=== PATIENT | male | born 1965 | race Caucasian/White ===

== ENCOUNTER → 2017-01-05 | Outpatient (CLI) | payer MEDICARE ==
[2017-01-05 11:45] LABS: Anion Gap 10 mmol/L; Blood Urea Nitrogen 20 mg/dL (9-20); Calcium 8.9 mg/dL (8.4-10.2); Carbon Dioxide 23 mmol/L (22-30); Chloride 105 mmol/L (98-107); Glucose 172 mg/dL (74-99); Non-African American GFR(MDRD) >60 (>60 ml/min/1.73 sqM); Potassium 4.6 mmol/L (3.5-5.1); Sodium 138 mmol/L (137-145)
[2017-01-05 12:13] LABS: Prostate Specific Antigen 1.23 ng/mL (0.00-4.00)
== END | disposition home or self-care (01) ==
LOC: LABWHC1 07:06
PROVIDERS: ATTEND Internal Medicine
DX: N40.0 Benign prostatic hyperplasia without lower urinary tract symptoms (principal); J44.9 Chronic obstructive pulmonary disease, unspecified; E87.8 Other disorders of electrolyte and fluid balance, not elsewhere classified; E87.5 Hyperkalemia; I10 Essential (primary) hypertension; E55.9 Vitamin D deficiency, unspecified; E10.9 Type 1 diabetes mellitus without complications
CPT/HCPCS: 36415; 80048; 83036; 84153

== ENCOUNTER → 2017-08-22 | Outpatient (CLI) | payer MEDICARE ==
[2017-08-22 07:47] LABS: Basophils # (A) 0.1 k/uL (0-0.2); Basophils % (A) 1 %; Eosinophils # (A) 0.6 k/uL (0-0.7); Eosinophils % (A) 6 %; HCT 51.3 % (39.0-53.0); HGB 15.9 gm/dL (13.0-17.5); Lymphocytes % (A) 19 %; MCH 30.6 pg (25.0-35.0); MCV 98.8 fL (80.0-100.0); Mean Platelet Volume 7.6; Monocytes # (A) 0.7 k/uL (0-1.0); Monocytes % (A) 7 %; Neutrophils # (A) 6.8 k/uL (1.3-7.7); Neutrophils % (A) 65 %; Platelet Count 343 k/uL (150-450); RBC 5.19 m/uL (4.30-5.90); RDW 13.9 % (11.5-15.5); WBC 10.5 k/uL (3.8-10.6)
[2017-08-22 10:14] LABS: Albumin 4.4 g/dL (3.5-5.0); Anion Gap 10 mmol/L; C Reactive Protein 12.2 mg/L (<10.0); Calcium 9.8 mg/dL (8.4-10.2); Carbon Dioxide 29 mmol/L (22-30); Chloride 100 mmol/L (98-107); Cholesterol 190 mg/dL (<200); Creatine Kinase 303 U/L (55-170); Creatinine,Urine Random 53.7 mg/dL; Glucose 221 mg/dL (74-99); HDL Cholesterol 62 mg/dL (40-60); LDL Cholesterol,Calculated 115 mg/dL (0-99); Sodium 139 mmol/L (137-145); Total Bilirubin 0.6 mg/dL (0.2-1.3); Total Protein 7.8 g/dL (6.3-8.2); Triglycerides 64 mg/dL (<150); Uric Acid 4.2 mg/dL (3.5-8.5)
[2017-08-22 10:27] LABS: T4, Free (Free Thyroxine) 1.35 ng/dL (0.78-2.19)
[2017-08-22 10:41] LABS: Prostate Specific Antigen 1.25 ng/mL (0.00-4.00)
[2017-08-22 10:43] LABS: ALT 39 U/L (21-72); AST 25 U/L (17-59); Alkaline Phosphatase 63 U/L (38-126); Blood Urea Nitrogen 20 mg/dL (9-20); Potassium 5.4 mmol/L (3.5-5.1)
[2017-08-22 11:15] LABS: Erythrocyte Sedimentation Rate 9 mm/hr (0-15)
[2017-08-22 15:58] LABS: Hemoglobin A1C 8.3 % (4.0-6.0)
== END | disposition home or self-care (01) ==
LOC: LABWHC1 07:20
PROVIDERS: ATTEND Internal Medicine
DX: N40.0 Benign prostatic hyperplasia without lower urinary tract symptoms (principal); E10.9 Type 1 diabetes mellitus without complications; E78.5 Hyperlipidemia, unspecified; I10 Essential (primary) hypertension; R80.9 Proteinuria, unspecified; E55.9 Vitamin D deficiency, unspecified
CPT/HCPCS: 36415; 80053; 80061; 82306; 82550; 82570; 83036; 84153; 84156; 84439; 84443; 84550; 85025; 85652; 86140

== ENCOUNTER → 2017-12-05 | Outpatient (CLI) | payer MEDICARE ==
[2017-12-05 10:06] LABS: ALT 23 U/L (21-72); AST 28 U/L (17-59); Anion Gap 12 mmol/L; Blood Urea Nitrogen 22 mg/dL (9-20); C Reactive Protein 8.9 mg/L (<10.0); Calcium 9.5 mg/dL (8.4-10.2); Carbon Dioxide 28 mmol/L (22-30); Chloride 103 mmol/L (98-107); Cholesterol 175 mg/dL (<200); Creatine Kinase 433 U/L (55-170); Glucose 87 mg/dL (74-99); HDL Cholesterol 65 mg/dL (40-60); LDL Cholesterol,Calculated 101 mg/dL (0-99); Magnesium 2.2 mg/dL (1.6-2.3); Phosphorus 3.5 mg/dL (2.5-4.5); Potassium 4.9 mmol/L (3.5-5.1); Sodium 143 mmol/L (137-145); Triglycerides 47 mg/dL (<150)
[2017-12-05 10:17] LABS: T4, Free (Free Thyroxine) 1.12 ng/dL (0.78-2.19)
[2017-12-05 16:57] LABS: Hemoglobin A1C 8.1 % (4.0-6.0)
== END ==
LOC: LABWHC1 06:55
PROVIDERS: ATTEND Internal Medicine
DX: E03.9 Hypothyroidism, unspecified (principal); E55.9 Vitamin D deficiency, unspecified; E11.9 Type 2 diabetes mellitus without complications; E87.5 Hyperkalemia
CPT/HCPCS: 36415; 80048; 80061; 82306; 82550; 83036; 83735; 84100; 84439; 84443; 84450; 84460; 85652; 86140

== ENCOUNTER → 2018-06-05 | Outpatient (CLI) | payer MEDICARE ==
[2018-06-05 11:33] LABS: Hemoglobin A1C 6.8 % (4.0-6.0)
== END | disposition home or self-care (01) ==
LOC: LABWHC1 07:03
PROVIDERS: ATTEND Internal Medicine
DX: E10.8 Type 1 diabetes mellitus with unspecified complications (principal)
CPT/HCPCS: 36415; 82947; 83036; 84681

== ENCOUNTER → 2018-08-26 | Outpatient (CLI) | payer MEDICARE ==
[2018-08-26 07:51] LABS: Appearance,Urine Clear (Clear); Bilirubin,Urine Negative (Negative); Blood,Urine Negative (Negative); Color,Urine Yellow; Glucose,Urine (UA) 3+ (Negative); Ketones,Urine Negative (Negative); Leukocyte Esterase,Urine Negative (Negative); Nitrite,Urine Negative (Negative); PH, Urine 5.5 (5.0-8.0); Protein,Urine Negative (Negative); Specific Gravity,Urine 1.018 (1.001-1.035); Urobilinogen,Urine <2.0 mg/dL (<2.0)
[2018-08-26 07:58] LABS: Basophils # (A) 0.1 k/uL (0-0.2); Basophils % (A) 1 %; Eosinophils # (A) 0.6 k/uL (0-0.7); Eosinophils % (A) 7 %; HCT 47.3 % (39.0-53.0); HGB 15.9 gm/dL (13.0-17.5); Lymphocytes # (A) 2.7 k/uL (1.0-4.8); Lymphocytes % (A) 32 %; MCH 31.8 pg (25.0-35.0); MCHC 33.5 g/dL (31.0-37.0); MCV 94.9 fL (80.0-100.0); Mean Platelet Volume 7.2; Monocytes # (A) 0.6 k/uL (0-1.0); Monocytes % (A) 7 %; Neutrophils # (A) 4.2 k/uL (1.3-7.7); Neutrophils % (A) 51 %; Platelet Count 322 k/uL (150-450); RBC 4.99 m/uL (4.30-5.90); RDW 12.3 % (11.5-15.5); WBC 8.4 k/uL (3.8-10.6)
[2018-08-26 11:48] LABS: T4, Free (Free Thyroxine) 1.4 ng/dL (0.80-1.80)
[2018-08-26 12:02] LABS: Erythrocyte Sedimentation Rate 11 mm/hr (0-15)
[2018-08-26 12:24] LABS: Albumin 4.5 g/dL (3.80-4.90); Albumin/Globulin Ratio 2.05 (1.20-2.10); Anion Gap 8.7 mmol/L (4.00-12.00); C Reactive Protein 0.9 mg/dL (0.0-0.8); Calcium 9.2 mg/dL (8.7-10.3); Carbon Dioxide 25.3 mmol/L (21.6-31.8); Globulin 2.2 g/dL (1.6-3.3); LDL Cholesterol,Calculated 111.2 mg/dL (0.0-131.0); Magnesium 1.7 mg/dL (1.5-2.4); Phosphorus 4.6 mg/dL (2.4-5.1); Potassium 4.2 mmol/L (3.5-5.5); Total Bilirubin 0.5 mg/dL (0.3-1.2); Total Protein 6.7 g/dL (6.2-8.2); VLDL Calculation 17.8 mg/dL (5.00-40.00)
[2018-08-26 14:56] LABS: Hemoglobin A1C 8.3 % (4.0-6.0)
== END | disposition home or self-care (01) ==
LOC: LABWHC1 07:25
PROVIDERS: ATTEND Internal Medicine
DX: E10.40 Type 1 diabetes mellitus with diabetic neuropathy, unspecified (principal); N40.0 Benign prostatic hyperplasia without lower urinary tract symptoms; J44.9 Chronic obstructive pulmonary disease, unspecified; E78.5 Hyperlipidemia, unspecified; E03.9 Hypothyroidism, unspecified
CPT/HCPCS: 36415; 80053; 80061; 81003; 82043; 82550; 82570; 83036; 83735; 84100; 84153; 84439; 84443; 85025; 85652; 86140

== ENCOUNTER → 2018-11-26 | Outpatient (CLI) | payer MEDICARE ==
[2018-11-26 20:09] LABS: T4, Free (Free Thyroxine) 1.6 ng/dL (0.80-1.80)
[2018-11-26 20:13] LABS: LDL Cholesterol,Calculated 91.2 mg/dL (0.0-131.0); VLDL Calculation 12.8 mg/dL (5.00-40.00)
== END ==
LOC: LABWHC1 07:13
PROVIDERS: ATTEND Internal Medicine
DX: E78.5 Hyperlipidemia, unspecified (principal); E03.9 Hypothyroidism, unspecified; E55.9 Vitamin D deficiency, unspecified; E10.9 Type 1 diabetes mellitus without complications
CPT/HCPCS: 36415; 80061; 82306; 82550; 84439; 84443; 84450; 84460

== ENCOUNTER → 2019-03-03 | Outpatient (CLI) | payer MEDICARE ==
[2019-03-03 12:55] LABS: Creatine Kinase 390 U/L (35-257); Glucose 123 mg/dL (70-110)
[2019-03-03 14:34] LABS: Hemoglobin A1C 7.8 % (4.0-6.0)
== END | disposition home or self-care (01) ==
LOC: LABWHC1 06:50
PROVIDERS: ATTEND Internal Medicine
DX: E10.8 Type 1 diabetes mellitus with unspecified complications (principal)
CPT/HCPCS: 36415; 82550; 82947; 83036

== ENCOUNTER → 2019-06-11 | Outpatient (CLI) | payer MEDICARE, OTHER ==
[2019-06-11 11:22] LABS: African American GFR (CKD) 65.5 (60.0-200.0); Anion Gap 10.1 mmol/L (4.00-12.00); BUN/Creat Ratio 22.14 Ratio (12.00-20.00); Calcium 9.1 mg/dL (8.7-10.3); Carbon Dioxide 27.9 mmol/L (21.6-31.8); Non-African American GFR(CKD) 56.6 (60.0-200.0); Potassium 4.9 mmol/L (3.5-5.5)
[2019-06-11 11:29] LABS: T4, Free (Free Thyroxine) 1.4 ng/dL (0.80-1.80)
[2019-06-11 16:29] LABS: Hemoglobin A1C 8.5 % (4.0-6.0)
== END | disposition home or self-care (01) ==
LOC: LABWHC1 06:57
PROVIDERS: ATTEND Internal Medicine
DX: E10.9 Type 1 diabetes mellitus without complications (principal); E55.9 Vitamin D deficiency, unspecified
CPT/HCPCS: 36415; 80048; 82306; 83036; 84439; 84443

== ENCOUNTER → 2020-06-16 | Outpatient (CLI) | payer MEDICARE, OTHER ==
[2020-06-16 15:18] LABS: T4, Free (Free Thyroxine) 1.3 ng/dL (0.80-1.80)
[2020-06-16 17:36] LABS: Hemoglobin A1C 8.8 % (4.0-6.0)
[2020-06-16 18:02] LABS: Potassium 5.1 mmol/L (3.5-5.5)
[2020-06-16 18:03] LABS: African American GFR (CKD) 87.1 (60.0-200.0); Anion Gap 10.5 mmol/L (4.00-12.00); BUN/Creat Ratio 13.64 Ratio (12.00-20.00); Calcium 9.4 mg/dL (8.7-10.3); Carbon Dioxide 25.5 mmol/L (21.6-31.8); Non-African American GFR(CKD) 75.2 (60.0-200.0)
== END | disposition home or self-care (01) ==
LOC: LABWHC1 07:23
PROVIDERS: ATTEND Internal Medicine
DX: E10.8 Type 1 diabetes mellitus with unspecified complications (principal)
CPT/HCPCS: 36415; 80048; 83036; 84439; 84443; 85652

== ENCOUNTER → 2021-05-22 | Outpatient (CLI) | payer MEDICARE, OTHER ==
[2021-05-22 14:23] LABS: African American GFR (CKD) 102.6 (60.0-200.0); Anion Gap 14.4 mmol/L (4.00-12.00); BUN/Creat Ratio 20.73 Ratio (12.00-20.00); Blood Urea Nitrogen 19.8 mg/dL (9.0-27.0); Calcium 9.4 mg/dL (8.7-10.3); Carbon Dioxide 23.8 mmol/L (21.6-31.8); Non-African American GFR(CKD) 88.6 (60.0-200.0); Potassium 4.9 mmol/L (3.5-5.5)
== END | disposition home or self-care (01) ==
LOC: LABWHC1 07:05
PROVIDERS: ATTEND Internal Medicine
DX: E10.8 Type 1 diabetes mellitus with unspecified complications (principal)
CPT/HCPCS: 36415; 80048; 83036; 84450; 84460

== ENCOUNTER → 2021-05-25 | Outpatient (CLI) | payer MEDICARE, OTHER ==
--- NOTE | 2021-05-25 16:56 | US ---
EXAMINATION TYPE: US venous doppler duplex LE LT DATE OF EXAM: 05/25/2021 1:47 PM COMPARISON: NONE CLINICAL HISTORY: 55-year-old male R60.9 Swelling/edema E10.8 diabetes. Left leg swelling SIDE PERFORMED: Left TECHNIQUE: The lower extremity deep venous system is examined utilizing real time linear array sonog fredrick with graded compression, doppler sonography and color-flow sonography. FINDINGS: VESSELS IMAGED: Common Femoral Vein Deep Femoral Vein Greater Saphenous Vein * Femoral Vein Popliteal Vein Small Saphenous Vein * Proximal Calf Veins (* superficial vessels) Left Leg: Appears negative for DVT IMPRESSION: No evidence for DVT within the left lower extremity imaged from the groin to the upper calf.
== END | disposition home or self-care (01) ==
LOC: RADUSWWP 13:15
PROVIDERS: ATTEND Internal Medicine
DX: E11.65 Type 2 diabetes mellitus with hyperglycemia (principal); R60.9 Edema, unspecified; R22.42 Localized swelling, mass and lump, left lower limb

== ENCOUNTER → 2022-01-29 | Outpatient (CLI) | payer MEDICARE, OTHER ==
[2022-01-29 10:42] LABS: Basophils # (A) 0.07 X 10*3/uL (0.00-0.10); Basophils % (A) 0.8 %; Eosinophils # (A) 0.55 X 10*3/uL (0.04-0.35); Eosinophils % (A) 6.5 %; HCT 44.8 % (39.6-50.0); HGB 14.8 g/dL (13.0-17.0); Immature Grans, Automated 0.5 %; Lymphocytes # (A) 1.69 X 10*3/uL (0.90-5.00); Lymphocytes % (A) 19.9 %; MCH 30.5 pg (27.0-32.0); MCV 92.2 fL (80.0-97.0); Mean Platelet Volume 9.5 fL (9.5-12.2); Monocytes # (A) 0.99 X 10*3/uL (0.20-1.00); Monocytes % (A) 11.6 %; NRBC Per 100 WBC 0 /100 WBCS (0.0-0.0); Neutrophils # (A) 5.17 X 10*3/uL (1.80-7.70); Neutrophils % (A) 60.7 %; Platelet Count 341 X 10*3/uL (140-440); RBC 4.86 X 10*6/uL (4.40-5.60); WBC 8.51 X 10*3/uL (4.50-10.00)
[2022-01-29 11:24] LABS: ALT 17 U/L (10-49); AST 17 U/L (14-35); African American GFR (CKD) 86.9 (60.0-200.0); Albumin 4.4 g/dL (3.8-4.9); Albumin/Globulin Ratio 1.56 (1.60-3.17); Alkaline Phosphatase 67 U/L (41-126); Blood Urea Nitrogen 20.6 mg/dL (9.0-27.0); Calcium 9.5 mg/dL (8.7-10.3); Carbon Dioxide 27.9 mmol/L (20.0-27.5); Chloride 98 mmol/L (96-109); Chol/HDL Ratio 2.47 Ratio; Globulin 2.8 g/dL (1.6-3.3); Glucose 165 mg/dL (70-110); LDL Cholesterol,Calculated 87.2 mg/dL (0.0-131.0); Potassium 5.2 mmol/L (3.5-5.5); Sodium 134 mmol/L (135-145); Total Protein 7.2 g/dL (6.2-8.2); VLDL Calculation 10.38 mg/dL (5.00-40.00)
== END | disposition home or self-care (01) ==
LOC: LABWHC1 07:00
PROVIDERS: ATTEND Internal Medicine
DX: I10 Essential (primary) hypertension (principal); E87.8 Other disorders of electrolyte and fluid balance, not elsewhere classified; E10.8 Type 1 diabetes mellitus with unspecified complications; E78.5 Hyperlipidemia, unspecified; E03.9 Hypothyroidism, unspecified
CPT/HCPCS: 36415; 80053; 80061; 82306; 83036; 84439; 84443; 85025

== ENCOUNTER → 2022-06-04 | Outpatient (CLI) | payer MEDICARE, OTHER | END | disposition home or self-care (01) | LOC: LABWHC1 07:02 | PROVIDERS: ATTEND Internal Medicine | DX: E10.649 Type 1 diabetes mellitus with hypoglycemia without coma (principal) | CPT/HCPCS: 36415; 82947; 83036 ==

== ENCOUNTER → 2022-09-20 | Outpatient (CLI) | payer MEDICARE, OTHER ==
[2022-09-20 18:27] LABS: Basophils # (A) 0.07 X 10*3/uL (0.00-0.10); Basophils % (A) 0.8 %; Eosinophils # (A) 0.47 X 10*3/uL (0.04-0.35); Eosinophils % (A) 5.1 %; HCT 46.6 % (39.6-50.0); HGB 15.3 g/dL (13.0-17.0); Immature Grans, Automated 0.3 %; Lymphocytes # (A) 1.93 X 10*3/uL (0.90-5.00); Lymphocytes % (A) 20.9 %; MCHC 32.8 g/dL (32.0-37.0); MCV 94.5 fL (80.0-97.0); Mean Platelet Volume 9.7 fL (9.5-12.2); Monocytes # (A) 0.77 X 10*3/uL (0.20-1.00); Monocytes % (A) 8.4 %; NRBC Per 100 WBC 0 /100 WBCS (0.0-0.0); Neutrophils # (A) 5.95 X 10*3/uL (1.80-7.70); Neutrophils % (A) 64.5 %; Platelet Count 355 X 10*3/uL (140-440); RBC 4.93 X 10*6/uL (4.40-5.60); RDW 13.2 % (11.5-14.5); WBC 9.22 X 10*3/uL (4.50-10.00)
[2022-09-20 18:50] LABS: Prostate Specific Antigen 1.5 ng/mL (0.00-3.50); T4, Free (Free Thyroxine) 1.39 ng/dL (0.800-1.800)
[2022-09-20 18:53] LABS: African American GFR (CKD) 85.9 (60.0-200.0); Albumin 4.4 g/dL (3.8-4.9); Albumin/Globulin Ratio 1.29 (1.60-3.17); Anion Gap 12.8 mmol/L (10.00-18.00); BUN/Creat Ratio 22.45 Ratio (12.00-20.00); Blood Urea Nitrogen 24.7 mg/dL (9.0-27.0); C Reactive Protein 0.8 mg/dL (0.00-0.80); Calcium 9.8 mg/dL (8.7-10.3); Carbon Dioxide 27.2 mmol/L (20.0-27.5); Globulin 3.4 g/dL (1.6-3.3); Non-African American GFR(CKD) 74.1 (60.0-200.0); Phosphorus 3.8 mg/dL (2.4-5.1); Potassium 5.2 mmol/L (3.5-5.5); Total Bilirubin 0.3 mg/dL (0.30-1.20); Total Protein 7.8 g/dL (6.2-8.2)
[2022-09-20 19:01] LABS: Erythrocyte Sedimentation Rate 28 mm/Hr (0-20)
== END | disposition home or self-care (01) ==
LOC: LABWHC1 12:40
PROVIDERS: ATTEND Internal Medicine
DX: Z00.00 Encounter for general adult medical examination without abnormal findings (principal); E10.9 Type 1 diabetes mellitus without complications; N40.0 Benign prostatic hyperplasia without lower urinary tract symptoms; E78.5 Hyperlipidemia, unspecified; R06.02 Shortness of breath
CPT/HCPCS: 36415; 80053; 82043; 82306; 82550; 82570; 83036; 83735; 84100; 84153; 84439; 84443; 85025; 85652; 86140

== ENCOUNTER → 2022-12-14 | Outpatient (CLI) | payer MEDICARE, OTHER ==
[2022-12-14 12:07] LABS: African American GFR (CKD) 85.3 (60.0-200.0); Anion Gap 7.6 mmol/L (10.00-18.00); BUN/Creat Ratio 24.55 Ratio (12.00-20.00); Calcium 9.7 mg/dL (8.7-10.3); Carbon Dioxide 29.4 mmol/L (20.0-27.5); Non-African American GFR(CKD) 73.6 (60.0-200.0); Potassium 5.3 mmol/L (3.5-5.5)
== END | disposition home or self-care (01) ==
LOC: LABWHC1 07:24
PROVIDERS: ATTEND Internal Medicine
DX: I10 Essential (primary) hypertension (principal); E11.65 Type 2 diabetes mellitus with hyperglycemia; E87.8 Other disorders of electrolyte and fluid balance, not elsewhere classified; R06.02 Shortness of breath
CPT/HCPCS: 36415; 80048; 83036

== ENCOUNTER → 2023-03-23 | Outpatient (CLI) | payer MEDICARE, OTHER ==
[2023-03-23 13:26] LABS: ALT 17 U/L (10-49); AST 17 U/L (14-35); Chol/HDL Ratio 3.25 Ratio; Glucose 94 mg/dL (70-110); LDL Cholesterol,Calculated 112.1 mg/dL (0.0-131.0); VLDL Calculation 11.92 mg/dL (5.00-40.00)
== END | disposition home or self-care (01) ==
LOC: LABWHC1 08:25
PROVIDERS: ATTEND Internal Medicine
DX: E10.9 Type 1 diabetes mellitus without complications (principal); E78.5 Hyperlipidemia, unspecified
CPT/HCPCS: 36415; 80061; 82947; 83036; 84450; 84460

== ENCOUNTER → 2023-07-08 | Outpatient (CLI) | payer MEDICARE, OTHER ==
[2023-07-08 15:58] LABS: Glucose 83 mg/dL (70-110)
[2023-07-08 18:32] LABS: C-Peptide <0.02 ng/mL (0.81-3.85)
== END | disposition home or self-care (01) ==
LOC: LABWHC1 08:37
PROVIDERS: ATTEND Internal Medicine Endocrinology, Diabetes & Metabolism
DX: E10.65 Type 1 diabetes mellitus with hyperglycemia (principal)
CPT/HCPCS: 36415; 82947; 83519; 84681

== ENCOUNTER → 2023-11-12 | Outpatient (CLI) | payer MEDICARE, OTHER ==
--- NOTE | 2023-11-19 11:09 | CT ---
EXAMINATION TYPE: CT chest wo con CT DLP: 517.6 mGycm, Automated exposure control for dose reduction was used. DATE OF EXAM: 11/12/2023 7:23 AM COMPARISON: None. . CLINICAL INDICATION:Male, 57 years old with history of F17.200 NICOTINE DEPENDENCE, UNSPECIFIED, UNCO MPLI; PHH, history of smoker TECHNIQUE: Multiple axial images were obtained through the chest. Sagittal and coronal reformats were created for review. Contrast used: mL of (None if empty) Oral contrast used: (None if empty) FINDINGS: LUNGS/ PLEURA: No significant emphysematous changes. No acute infiltrate, pleural effusion, or pneumothorax. Minimal linear scarring or atelectasis in the lingula. Nodules: No clinically significant nodules identified. Very small somewhat nodular thickening along t he inferior end of the left oblique fissure around image 53, likely fissural lymph node or fissural t hickening. Similarly, likely fissural lymph node farther cranially on image 38. AIRWAY: Central airways appear patent. There seems to be mild narrowing of the mid trachea in the tra nsverse dimension. LOWER NECK: No significant findings. MEDIASTINUM: No evidence of enlarged mediastinal nodes.. HEART: Normal heart size. Moderate to severe coronary artery calcification and/or stents. Trace peric ardial effusion. VASCULATURE: Mild atherosclerotic calcifications of the aorta and branches. The aortic root is 3.5 c m, ascending 3.1 cm, mid arch 2.5 cm, descending 2.2 cm. Pulmonary trunk measures 2.5 CM. Pulmonary t runk is normal in size. Vessels otherwise not further assessed without contrast. SOFT TISSUES/LYMPH NODES: Mild bilateral gynecomastia like changes, otherwise unremarkable soft tissu es of the chest. No enlarged axillary nodes. UPPER ABDOMEN: No significant findings. Small sliding hiatal hernia. Question mild wall thickening co uld be from reflux. MUSCULOSKELETAL: No acute osseous abnormalities. Mild disc degeneration changes are present throughou t the thoracolumbar spine. IMPRESSION: 1. No concerning pulmonary nodules. If continued lung cancer screening is desired, recommend annual low-dose CT chest. 2. Moderate to heavy coronary arterial calcifications.
== END | disposition home or self-care (01) ==
LOC: RADCTMAIN 07:03
PROVIDERS: ATTEND Internal Medicine
DX: I25.10 Atherosclerotic heart disease of native coronary artery without angina pectoris (principal); F17.200 Nicotine dependence, unspecified, uncomplicated
CPT/HCPCS: 71250

== ENCOUNTER → 2024-04-03 | Outpatient (CLI) | payer MEDICARE | END | disposition home or self-care (01) | LOC: LABWHC1 11:33 | PROVIDERS: ATTEND Internal Medicine | DX: Z00.00 Encounter for general adult medical examination without abnormal findings (principal); I12.9 Hypertensive chronic kidney disease with stage 1 through stage 4 chronic kidney disease, or unspecified chronic kidney disease; N18.30 Chronic kidney disease, stage 3 unspecified; D63.1 Anemia in chronic kidney disease; J44.9 Chronic obstructive pulmonary disease, unspecified; E55.9 Vitamin D deficiency, unspecified; E87.8 Other disorders of electrolyte and fluid balance, not elsewhere classified; E78.5 Hyperlipidemia, unspecified; E11.65 Type 2 diabetes mellitus with hyperglycemia; M10.9 Gout, unspecified; M81.0 Age-related osteoporosis without current pathological fracture | CPT/HCPCS: 36415; 80053; 80061; 82043; 82306; 82550; 82570; 82728; 83036; 83540; 83550; 83735; 84100; 84153; 84443; 84550; 85025; 85652; 86140 ==

== ENCOUNTER → 2024-08-28 | Outpatient (CLI) | payer MEDICARE ==
[2024-08-28 15:06] LABS: Basophils % (A) 1.1 %; Eosinophils % (A) 6.7 %; HCT 48.7 % (39.6-50.0); HGB 15.4 g/dL (13.0-17.0); Lymphocytes # (A) 2.39 X 10*3/uL (0.90-5.00); Lymphocytes % (A) 26.9 %; MCH 30.5 pg (27.0-32.0); MCHC 31.6 g/dL (32.0-37.0); MCV 96.4 FL (80.0-97.0); Monocytes # (A) 0.87 X 10*3/uL (0.20-1.00); Monocytes % (A) 9.8 %; NRBC Per 100 WBC 0 X 10*3/uL (0.00-0.01); Neutrophils # (A) 4.91 X 10*3/uL (1.80-7.70); Neutrophils % (A) 55.3 %; Platelet Count 361 X 10*3/uL (140-440); RBC 5.05 X 10*6/uL (4.40-5.60); RDW 12.9 % (11.5-14.5); WBC 8.89 X 10*3/uL (4.50-10.00)
[2024-08-28 15:41] LABS: Chol/HDL Ratio 3.24 Ratio; Creatine Kinase 271 U/L (35-257); VLDL Calculation 16.04 mg/dL (5.00-40.00)
[2024-08-28 15:42] LABS: % Iron Saturation 24.92 (15.00-50.00); ALT 15 U/L (10-49); AST 18 U/L (14-35); Albumin 4.3 g/dL (3.8-4.9); Albumin/Globulin Ratio 1.39 Ratio (1.60-3.17); Alkaline Phosphatase 76 U/L (41-126); BUN/Creat Ratio 22.64 Ratio (12.00-20.00); Blood Urea Nitrogen 24.9 mg/dL (9.0-27.0); Calcium 9.7 mg/dL (8.7-10.3); Carbon Dioxide 27.9 mmol/L (21.6-31.8); Chloride 100 mmol/L (96-109); Globulin 3.1 g/dL (1.6-3.3); Glucose 153 mg/dL (70-110); Iron 82 UG/DL (65-175); LDL Cholesterol,Calculated 124.3 mg/dL (0.0-131.0); Magnesium 2.4 mg/dL (1.5-2.4); Phosphorus 3.3 mg/dL (2.4-5.1); Potassium 5.3 mmol/L (3.5-5.5); Prostate Specific Antigen 1.86 ng/mL (0.000-3.500); Sodium 141 mmol/L (135-145); Total Bilirubin 0.4 mg/dL (0.3-1.2); Total Iron Binding Capacity 329 UG/DL (228-460); Total Protein 7.4 g/dL (6.2-8.2); Uric Acid 4.5 mg/dL (3.7-8.7)
== END | disposition home or self-care (01) ==
LOC: LABWHC1 07:16
PROVIDERS: ATTEND Internal Medicine Endocrinology, Diabetes & Metabolism
DX: Z00.00 Encounter for general adult medical examination without abnormal findings (principal); I12.9 Hypertensive chronic kidney disease with stage 1 through stage 4 chronic kidney disease, or unspecified chronic kidney disease; E11.22 Type 2 diabetes mellitus with diabetic chronic kidney disease; N18.30 Chronic kidney disease, stage 3 unspecified; D63.1 Anemia in chronic kidney disease; N40.0 Benign prostatic hyperplasia without lower urinary tract symptoms; J44.9 Chronic obstructive pulmonary disease, unspecified; E87.8 Other disorders of electrolyte and fluid balance, not elsewhere classified; M10.00 Idiopathic gout, unspecified site; E78.5 Hyperlipidemia, unspecified; E11.65 Type 2 diabetes mellitus with hyperglycemia; E66.9 Obesity, unspecified; M10.9 Gout, unspecified; E55.9 Vitamin D deficiency, unspecified; R80.9 Proteinuria, unspecified
CPT/HCPCS: 36415; 80053; 80061; 82306; 82550; 82728; 83036; 83540; 83550; 83735; 83970; 84100; 84153; 84439; 84443; 84550; 85025; 86140

== ENCOUNTER → 2025-01-23 | Outpatient (CLI) | payer MEDICARE ==
[2025-01-23 09:03] LABS: Creatinine,Urine Random 51.4 mg/dL; Protein/Creatinine Ratio,Urine 0.272
[2025-01-23 12:53] LABS: Microalbumin Creatinine Ratio <24 mg/g Cr (0-30)
[2025-01-23 13:05] LABS: Glucose 120 mg/dL (70-110); LDL Cholesterol,Calculated 73.9 mg/dL (0.0-131.0); T4, Free (Free Thyroxine) 1.48 ng/dL (0.80-1.80); VLDL Calculation 10.96 mg/dL (5.00-40.00)
== END | disposition home or self-care (01) ==
LOC: LABWHC1 07:54
PROVIDERS: ATTEND Internal Medicine
DX: I10 Essential (primary) hypertension (principal); E11.65 Type 2 diabetes mellitus with hyperglycemia; E05.90 Thyrotoxicosis, unspecified without thyrotoxic crisis or storm
CPT/HCPCS: 36415; 80061; 82043; 82570; 82947; 83036; 84156; 84439; 84443